=== PATIENT | male | born 1975 | race Caucasian/White ===

== ENCOUNTER 2018-02-10 14:07 | Outpatient (REF) | payer MEDICARE, SELFPAY | END 2018-02-10 14:08 | LOC: LBN 14:07 | PROVIDERS: PCP Family Medicine; Visit Provider Otolaryngology Otolaryngology/Facial Plastic Surgery | DX: H65.22 Chronic serous otitis media, left ear (principal) | CPT/HCPCS: 87102; 87070; 87205 ==

== ENCOUNTER → 2022-07-21 09:05 | Outpatient (BNVA) | payer MEDICARE, SELFPAY | PROVIDERS: PCP Psychiatry & Neurology Neurology; Referring Provider Psychiatry & Neurology Neurology; Visit Provider Psychiatry & Neurology Neurology | DX: I10 Essential (primary) hypertension (principal); G40.219 Localization-related (focal) (partial) symptomatic epilepsy and epileptic syndromes with complex partial seizures, intractable, without status epilepticus | CPT/HCPCS: 99205 ==

== ENCOUNTER → 2022-10-27 07:10 | Outpatient (BNVA) | payer MEDICARE, SELFPAY | PROVIDERS: PCP Psychiatry & Neurology Neurology; Referring Provider Psychiatry & Neurology Neurology; Visit Provider Psychiatry & Neurology Neurology ==

== ENCOUNTER 2022-12-04 15:07 | Outpatient (CLI) | payer MEDICARE, SELFPAY ==
[2022-12-04 18:27] LABS: Abs Immature Grans 0.02 10^3/uL (0.0-0.06); Absolute Basophil Count 0.02 10^3/uL (0.0-0.2); Absolute Eosinophil Count 0.13 10^3/uL (0.0-0.7); Absolute Lymphocyte Count 2.15 10^3/uL (1.2-3.4); Absolute Monocyte Count 0.51 10^3/uL (0.1-0.8); Absolute Neutrophil Count 3.25 10^3/uL (1.2-6.7); Basophils % 0.3; Eosinophils % 2.1; HCT 46.6 % (40.0-50.0); HGB 16.3 g/dL (13.5-17.5); Immature Grans % 0.3; Lymphocytes % 35.4; MCH 29.7 pg (27.0-33.0); MCV 85 fL (80-95); MPV 10.5 fL (8.0-11.0); Monocytes % 8.4; Neutrophils % 53.5; Platelet Count 189 10^3/uL (130-400); RBC 5.49 10^6/uL (4.36-5.78); RDW 11.9 % (11.8-14.1); RDW-SD 36.9 fL; WBC 6.08 10^3/uL (4.4-10.8)
[2022-12-08 09:28] LABS: IgE 2 IU/mL (<158)
[2022-12-08 10:48] LABS: IgG 694 mg/dL (610-1616)
[2022-12-09 17:04] LABS: Cat Epithelium IgE <0.10 kU/L (<0.70); Cockroach IgE <0.10 kU/L (<0.70); Dog Dander IgE <0.10 kU/L (<0.70)
[2022-12-09 17:32] LABS: Almond IgE <0.10 kU/L (<0.70); Aspergillus Fumigatus IgE <0.10 kU/L (<0.70); Aspergillus Niger, IgE <0.10 kU/L (<0.70); Beech IgE <0.10 kU/L (<0.70); Bermuda Grass IgE <0.10 kU/L (<0.70); Candida Albicans (Monilia),IgE <0.10 kU/L (<0.70); Douglas Fir, IgE <0.10 kU/L (<0.70); Giant Ragweed IgE <0.10 kU/L (<0.70); Goat Epithelium IgE <0.10 kU/L (<0.70); Goldenrod IgE <0.10 kU/L (<0.70); House Dust/Greer Lab, IgE <0.10 kU/L (<0.70); Peanut IgE <0.10 kU/L (<0.70); Spruce, IgE <0.10 kU/L (<0.70)
[2022-12-09 17:52] LABS: Canary Feathers IgE <0.10 kU/L (<0.70); Finch Feathers, IgE <0.10 kU/L (<0.70)
[2022-12-10 09:13] LABS: CLASS 0; Cedar Red IgE <0.10 kU/L (<0.35)
== END 2022-12-04 15:08 | disposition home or self-care (01) ==
LOC: PUL 15:11
PROVIDERS: PCP Psychiatry & Neurology Neurology; Visit Provider Physician Assistant Surgical
DX: J45.909 Unspecified asthma, uncomplicated (principal); H62.42 Otitis externa in other diseases classified elsewhere, left ear
CPT/HCPCS: 82784; 86003; 82785; 84307; 85025; 86592

== ENCOUNTER → 2022-12-11 09:28 | Outpatient (BNVA) | payer MEDICARE, SELFPAY | PROVIDERS: PCP Psychiatry & Neurology Neurology; Referring Provider Psychiatry & Neurology Neurology; Visit Provider Psychiatry & Neurology Neurology | DX: G40.219 Localization-related (focal) (partial) symptomatic epilepsy and epileptic syndromes with complex partial seizures, intractable, without status epilepticus (principal) | CPT/HCPCS: 99214 ==

== ENCOUNTER 2023-05-12 02:57 | Outpatient (CLI) | payer MEDICARE, MEDICAID, SELFPAY ==
[2023-05-12] MEDS: Methacholine 100 MG VIAL IH (12:17)
[2023-05-12] MEDS: Albuterol HFA 18 GM 200 PUFF INH IH (12:18)
[2023-05-12] MEDS: Inhaler, Assist Device 1 EACH MC (12:18)
--- NOTE | 2023-05-12 16:10 | W.PFT ---
Date of service: 05/12/23 Time of Service: 10:06 Pulmonary Function Test Result Indications: Asthma Interpretation Spirometry: There is moderate airflow limitation. There is a 47% decrease in FEV1 with administration of 0.5mg/mL methacholine. Lung Volumes: There is air trapping Diffusion Capacity: Normal diffusion Airway Pressure: Increased airways resistance Impression Moderate airflow obstruction with a very strongly positive methacholine challenge test and air trapping. This is most consistent with poorly controlled asthma with airway remodelling. Clinical Correlation therefore is recommended.
== END 2023-05-12 02:58 | disposition home or self-care (01) ==
LOC: RT 02:57
PROVIDERS: PCP Family Medicine; Visit Provider Physician Assistant Surgical
DX: J45.998 Other asthma (principal)
CPT/HCPCS: 94060; 94070; 94726; 94729; 94010; J7674

== ENCOUNTER → 2023-08-11 10:02 | Outpatient (BNVA) | payer MEDICARE, MEDICAID, SELFPAY | PROVIDERS: PCP Family Medicine; Referring Provider Family Medicine; Visit Provider Student in an Organized Health Care Education/Training Program | DX: J45.909 Unspecified asthma, uncomplicated (principal) | CPT/HCPCS: 99214 ==

== ENCOUNTER → 2023-09-07 09:59 | Outpatient (BNVA) | payer MEDICARE, MEDICAID, SELFPAY | PROVIDERS: PCP Family Medicine; Referring Provider Family Medicine; Visit Provider Psychiatry & Neurology Neurology | DX: G40.219 Localization-related (focal) (partial) symptomatic epilepsy and epileptic syndromes with complex partial seizures, intractable, without status epilepticus (principal) | CPT/HCPCS: 99213 ==

== ENCOUNTER 2023-09-14 05:49 | Outpatient (CLI) | payer MEDICARE, MEDICAID, SELFPAY ==
--- NOTE | 2023-09-17 20:11 | PDOC.EEG ---
Neurology EEG EEG: [facility] Department of Neurology LONG-TERM AMBULATORY EEG REPORT Date of Recordin09/14/23 at 10:28:50 to 09/17/23 at 05:07:57 (there were some periods in which there was no recording totaling about ~5hours) Interpreting Physician: Dr. Danae Chen PCP/Referring Provider: Dr. Edinson Parker Reason for study: Mr. 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 Current Medications: Home Medications Medication Instructions Recorded Confirmed Type carvedilol 3.125 mg tablet 3.125 mg PO BID 04/10/22 09/07/23 History fluticasone 250 mcg-salmeterol 50 1 inh inhalation BID PRN 04/10/22 09/07/23 History mcg/dose blistr powdr for inhalation lisinopril 40 mg tablet 40 mg PO DAILY 04/10/22 09/07/23 History omeprazole 20 mg capsule,delayed 20 mg PO DAILY 04/10/22 09/07/23 History release melatonin 10 mg capsule 10 mg PO HS 07/21/22 09/07/23 History multivitamin 1 tab PO DAILY 07/21/22 09/07/23 History sildenafil 100 mg tablet 100 mg PO DAILY PRN 07/21/22 09/07/23 History trazodone 50 mg tablet 50 mg PO QHS 07/21/22 09/07/23 History acetaminophen 500 mg capsule 500 mg PO Q6H PRN 10/15/22 09/07/23 History fluticasone furoate 27.5 2 spray intranasal DAILY PRN 10/15/22 09/07/23 History mcg/actuation nasal spray,suspension ibuprofen 800 mg tablet 800 mg PO Q8H PRN 10/15/22 09/07/23 History levalbuterol tartrate 45 2 inh inhalation Q4H PRN 10/15/22 09/07/23 History mcg/actuation aerosol inhaler budesonide 160 mcg-glycopyr 9 2 inh inhalation BID #10.7 grams 12/04/22 09/07/23 Rx mcg-formot 4.8 mcg/actuation HFA inhaler (Breztri Aerosphere) gabapentin 600 mg tablet 600 mg PO BID #180 tabs 05/11/23 09/07/23 Rx clobazam 10 mg tablet 20 mg (2 x 10 mg) PO HS #60 tabs 07/01/23 09/07/23 Rx semaglutide 0.25 mg or 0.5 mg (2 0.25 mg subcut QWEEK 07/21/23 09/07/23 History mg/3 mL) subcutaneous pen injector eslicarbazepine 800 mg tablet 1,600 mg (2 x 800 mg) PO HS #180 07/30/23 09/07/23 Rx tabs paroxetine HCl 20 mg tablet mg PO 09/07/23 09/07/23 History METHODS: An 18-channel digitized electroencephalogram was recorded in the ambulatory setting with video. The 10/20 international system of electrode placement was used and bipolar and referential electrode montages were recorded. In addition to EEG the patient was monitored for EKG and by video. Activation procedures of photic stimulation and hyperventilation were performed if applicable. The duration of the recording was ~61.5 hours. DESCRIPTION OF EEG: Waking background activity: During maximal wakefulness a 10-Hz posterior background rhythm was present which was well-modulated, symmetrical, reactive to eye opening, and of moderate voltage. Faster frequencies were present in the bilateral anterior head regions. There was a normal anterior-posterior voltage gradient. Drowsy and sleeping background activity: During drowsiness, there was attenuation of the posterior dominant background rhythm and vertex waves. Normal stage II and III sleep was present with symmetrical sleep spindles, K-complexes, and vertex waves with slowing of the background rhythm to delta/theta frequencies. REM sleep manifested by rapid lateral eye movements and faster background rhythms was recorded. Arousal was unremarkable. Interictal abnormalities: none. Ictal findings: No events reports or recorded. There was an accidental button push on 09/16/23 at 09:29:31. Activating Procedures: Photic stimulation was performed which produced a symmetrical posterior driving response at various flash frequencies. Hyperventilation was performed with moderate effort and produced no physiological slowing of the background. EKG: EKG revealed normal sinus rhythm. INTERPRETATION: This long-term EEG is normal during the awake and sleep states as well as during the activation procedures. PRIOR EEG: -vEEG (10/2009): Normal interictal activity. Event #1. Aura only. EEG manifested by T4 rhythmic changes x 30 seconds. Ictal bradycardia. Event #2. Aura followed by eye blinking, eye deviation to L, oral automatisms, not following commands. x1min. EEG with rhythmic R temporal theta/delta with secondary generalization. Ictal bradycardia. Event #3. Aura only lasting <20 seconds. No EEG or cardiac changes. CLINICAL CORRELATION: No focal regions of cerebral dysfunction or epileptiform activity was present. Epilepsy remains a clinical diagnosis and a normal EEG does not rule out epilepsy. Clinical correlation is advised. Danae Chen MD Date of service: 09/14/23
== END 2023-09-17 23:59 | disposition home or self-care (01) ==
LOC: RT 05:49
PROVIDERS: PCP Family Medicine; Visit Provider Psychiatry & Neurology Neurology
DX: R68.89 Other general symptoms and signs (principal); G40.919 Epilepsy, unspecified, intractable, without status epilepticus
CPT/HCPCS: 95714; 95720; 95724

== ENCOUNTER → 2023-11-25 13:39 | Outpatient (BNVA) | payer MEDICARE, MEDICAID, SELFPAY | PROVIDERS: PCP Family Medicine; Referring Provider Family Medicine; Visit Provider Physician Assistant Surgical | DX: J45.909 Unspecified asthma, uncomplicated (principal) | CPT/HCPCS: 99214 ==

== ENCOUNTER 2023-12-09 13:42 | Outpatient (REF) | payer MEDICARE, MEDICAID, SELFPAY ==
[2023-12-09 22:39] LABS: ALT 46 U/L (16-63); AST 16 U/L (15-37); Albumin 4.1 g/dL (3.4-5.0); Alkaline Phosphatase 106 U/L (46-116); Anion Gap 8.7 mmol/L (3-11); BUN 9 mg/dL (7-18); Bilirubin, Total 0.4 mg/dL (0.2-1.0); CO2 28.3 mmol/L (21.0-32.0); Calcium 9.7 mg/dL (8.5-10.1); Chloride 103 mmol/L (98-107); Estimated GFR 94.59 (mL/min/1.73m2); Glucose 103 mg/dL (74-106); Potassium 4.5 mmol/L (3.5-5.1); Sodium 140 mmol/L (136-145); Total Protein 7.3 g/dL (6.4-8.2)
== END 2023-12-09 13:43 | disposition home or self-care (01) ==
LOC: NCHCN 13:42
PROVIDERS: PCP Family Medicine; Visit Provider Nurse Practitioner Family
DX: I10 Essential (primary) hypertension (principal)
CPT/HCPCS: 80053

== ENCOUNTER 2024-01-05 14:54 | Outpatient (REF) | payer MEDICARE, MEDICAID, SELFPAY ==
[2024-01-05 19:19] LABS: Anion Gap 8.1 mmol/L (3-11); BUN 10 mg/dL (7-18); CO2 27.9 mmol/L (21.0-32.0); Calcium 9.4 mg/dL (8.5-10.1); Chloride 105 mmol/L (98-107); Glucose 84 mg/dL (74-106); Potassium 4.7 mmol/L (3.5-5.1); Sodium 141 mmol/L (136-145)
== END 2024-01-05 14:55 | disposition home or self-care (01) ==
LOC: NCHCN 14:54
PROVIDERS: PCP Family Medicine; Visit Provider Nurse Practitioner Family
DX: Z72.51 High risk heterosexual behavior (principal)
CPT/HCPCS: 80048

== ENCOUNTER → 2024-01-11 09:57 | Outpatient (BNVA) | payer MEDICARE, MEDICAID, SELFPAY | PROVIDERS: PCP Family Medicine; Referring Provider Family Medicine; Visit Provider Physician Assistant Surgical | DX: J45.50 Severe persistent asthma, uncomplicated (principal) | CPT/HCPCS: 96372 ==

== ENCOUNTER 2024-01-29 16:49 | Outpatient (REF) | payer MEDICARE, SELFPAY ==
[2024-02-01 13:37] LABS: Measles IgG Antibody Positive (See Note)
[2024-02-01 13:39] LABS: Mumps Antibody IgG Negative (See Note)
[2024-02-01 13:41] LABS: Rubella IgG Ab (UVM) Positive (See Note)
== END 2024-01-29 16:50 | disposition home or self-care (01) ==
LOC: NCHCN 16:49
PROVIDERS: PCP Family Medicine; Visit Provider Nurse Practitioner Family
DX: Z11.59 Encounter for screening for other viral diseases (principal); Z01.84 Encounter for antibody response examination
CPT/HCPCS: 86735; 86762; 86765

== ENCOUNTER 2024-03-09 15:13 | Outpatient (REF) | payer MEDICARE, SELFPAY ==
[2024-03-09 20:16] LABS: ALT 44 U/L (16-63); AST 21 U/L (15-37); Albumin 4.1 g/dL (3.4-5.0); Alkaline Phosphatase 117 U/L (46-116); BUN 12 mg/dL (7-18); Bilirubin, Total 0.39 mg/dL (0.2-1.0); CREATININE 1.1 mg/dL (0.70-1.30); Calcium 9.2 mg/dL (8.5-10.1); Calculated LDL 107 mg/dL (<100); Chloride 106 mmol/L (98-107); Cholesterol 183 mg/dL (<200); Estimated GFR 83.84 (mL/min/1.73m2); Glucose 105 mg/dL (74-106); HDL Cholesterol 37 mg/dL (40-60); Potassium 4.6 mmol/L (3.5-5.1); Sodium 140 mmol/L (136-145); Total Protein 7.2 g/dL (6.4-8.2); Triglyceride 198 mg/dL (<150)
[2024-03-10 19:38] LABS: HIV-1/2 Ag & Ab Screen Negative (Negative)
[2024-03-11 12:03] LABS: Syphilis Serology (RPR) Negative (Negative)
[2024-03-11 13:54] LABS: Chlamydia Result Negative (Negative); GC Result Negative (Negative)
== END 2024-03-09 15:14 | disposition home or self-care (01) ==
LOC: NCHCN 15:13
PROVIDERS: PCP Family Medicine; Visit Provider Nurse Practitioner Family
DX: I10 Essential (primary) hypertension (principal); Z13.220 Encounter for screening for lipoid disorders; Z72.52 High risk homosexual behavior
CPT/HCPCS: 80053; 80061; 87389; 87491; 87591; 86592

== ENCOUNTER → 2024-05-18 13:48 | Outpatient (BNVA) | payer MEDICARE, SELFPAY | PROVIDERS: PCP Family Medicine; Referring Provider Family Medicine; Visit Provider Physician Assistant Surgical | DX: J45.909 Unspecified asthma, uncomplicated (principal); G47.33 Obstructive sleep apnea (adult) (pediatric) | CPT/HCPCS: 99214 ==

== ENCOUNTER 2024-06-13 13:38 | Outpatient (REF) | payer MEDICARE, SELFPAY ==
[2024-06-13 20:36] LABS: Anion Gap 9.7 mmol/L (3-11); BUN 13 mg/dL (7-18); CO2 25.3 mmol/L (21.0-32.0); CREATININE 1.2 mg/dL (0.70-1.30); Calcium 9.4 mg/dL (8.5-10.1); Chloride 107 mmol/L (98-107); Estimated GFR 75.53 (mL/min/1.73m2); Glucose 104 mg/dL (74-106); Potassium 4.3 mmol/L (3.5-5.1); Sodium 142 mmol/L (136-145)
[2024-06-14 19:26] LABS: HIV-1/2 Ag & Ab Screen Negative (Negative)
== END 2024-06-13 13:39 | disposition home or self-care (01) ==
LOC: NCHCN 13:38
PROVIDERS: PCP Family Medicine; Visit Provider Nurse Practitioner Family
DX: Z72.52 High risk homosexual behavior (principal)
CPT/HCPCS: 80048; 87389

== ENCOUNTER → 2024-08-16 12:07 | Outpatient (BNVA) | payer MEDICARE, SELFPAY | PROVIDERS: PCP Family Medicine; Referring Provider Family Medicine; Visit Provider Physician Assistant Surgical | DX: J45.909 Unspecified asthma, uncomplicated (principal); G47.33 Obstructive sleep apnea (adult) (pediatric) | CPT/HCPCS: 99214 ==

== ENCOUNTER → 2025-01-03 15:04 | Outpatient (BNVA) | payer MEDICARE, SELFPAY | PROVIDERS: PCP Family Medicine; Referring Provider Family Medicine; Visit Provider Physician Assistant Surgical | DX: J45.909 Unspecified asthma, uncomplicated (principal); G47.33 Obstructive sleep apnea (adult) (pediatric) | CPT/HCPCS: 99214 ==

== ENCOUNTER 2025-05-04 12:44 | Outpatient (REF) | payer MEDICARE, SELFPAY ==
[2025-05-04 19:22] LABS: HCT 50.1 % (40.0-50.0); HGB 17.3 g/dL (13.5-17.5); MCH 29.9 pg (27.0-33.0); MCHC 34.5 % (32.0-36.0); MCV 87 fL (80-95); MPV 10.4 fL (8.0-11.0); Platelet Count 218 10^3/uL (130-400); RBC 5.79 10^6/uL (4.36-5.78); RDW 12.4 % (11.8-14.1); RDW-SD 39.1 fL; WBC 7.88 10^3/uL (4.4-10.8)
[2025-05-04 19:43] LABS: Iron 106 ug/dL (65-175); Total Iron Binding Capacity 294 ug/dL (250-450)
[2025-05-04 19:46] LABS: ALT 25 U/L (16-63); AST 12 U/L (15-37); Albumin 4.2 g/dL (3.4-5.0); Alkaline Phosphatase 96 U/L (46-116); Anion Gap 10.1 mmol/L (3-11); BUN 16 mg/dL (7-18); Bilirubin, Total 0.5 mg/dL (0.2-1.0); CO2 25.9 mmol/L (21.0-32.0); Calcium 9.0 mg/dL (8.5-10.1); Chloride 106 mmol/L (98-107); Glucose 89 mg/dL (74-106); Potassium 3.9 mmol/L (3.5-5.1); Sodium 142 mmol/L (136-145); Total Protein 7.3 g/dL (6.4-8.2)
[2025-05-04 22:50] LABS: Ferritin 104 ng/mL (26-388)
[2025-05-05 18:13] LABS: HIV-1/2 Ag & Ab Screen Negative (Negative)
== END 2025-05-04 12:45 | disposition home or self-care (01) ==
LOC: NCHCN 12:44
PROVIDERS: PCP Family Medicine; Visit Provider Nurse Practitioner Family
DX: E83.119 Hemochromatosis, unspecified (principal); Z01.818 Encounter for other preprocedural examination; Z72.52 High risk homosexual behavior
CPT/HCPCS: 80053; 85027; 87389; 82728; 83540; 83550